=== PATIENT | male | born 1945 | race Caucasian/White ===

== ENCOUNTER 2019-06-14 01:59 | Inpatient (IN) | payer MEDICARE ==
[~2019-06-14] VITALS: Ht 180.3 cm; Wt 79.3 kg
[~2019-06-14 01:59] MED LIST: ACET325 PO; ALBIPROI; ASPI81CH PO; ATEN25; ATEN25 PO; CEPH500 PO; CITA20 PO; CLOP75 PO; DOCU100 PO; HYDACE5 PO; METO50ER PO; MODA200; Mirtazapine7.5 MG PO; OXYACE5T PO; RXHYDACE PO; SULTRIDS PO; TIOT18; TRAM50 PO; VENL150ER; Ventolin Soln3 ML INH
[2019-06-14 03:28] LABS: BASOPHILS ABSOLUTE AUTO 0.03 K/mm3 (0.00-0.23); BASOPHILS PERCENT AUTO 0 % (0-2); EOSINOPHILS ABSOLUTE AUTO 0.01 K/mm3 (0.00-0.68); EOSINOPHILS PERCENT AUTO 0 % (0-6); IMMATURE GRAN ABSOLUTE AUTO 0.08 K/mm3 (0.00-0.10); IMMATURE GRAN PERCENT AUTO 1 % (0-1); LYMPHOCYTES ABSOLUTE AUTO 0.92 K/mm3 (0.84-5.20); LYMPHOCYTES PERCENT AUTO 6 % (21-46); MONOCYTES ABSOLUTE AUTO 1.05 K/mm3 (0.16-1.47); MONOCYTES PERCENT AUTO 6 % (4-13); Mean Corpuscular HGB 30.7 pg (26.0-34.0); Mean Corpuscular HGB Conc 31.7 g/dL (31.5-36.5); Mean Corpuscular Volume 97 fL (80-100); Mean Platelet Volume 10.7 fL (9.1-12.4); NEUTROPHILS PERCENT AUTO 87 % (41-73); Platelet Count 203 K/mm3 (150-400); RDW Coefficient Variation 13.6 % (11.7-14.2); RDW Standard Deviation 48.4 fL (35.1-46.3); Red Blood Cell Count 4.24 M/mm3 (4.30-5.90); White Blood Cell Count 16.79 K/mm3 (4.00-11.30)
[2019-06-14 03:47] LABS: Alanine Aminotransfer (ALT/SGP 19 U/L (12-78); Albumin, Blood 3.5 g/dL (3.4-5.0); Alk Phos 61 U/L (50-136); Anion Gap 7 mmol/L (6-16); Aspartate Aminotrans (AST/SGOT 28 U/L (12-37); Bilirubin, Total 0.8 mg/dL (0.1-1.0); Blood Urea Nitrogen 16 mg/dL (8-24); Bun/Creatinine Ratio 18.1 (12.0-20.0); CO2, Blood 26 mmol/L (21-32); Calcium, Blood 9.5 mg/dL (8.5-10.1); Chloride, Blood 108 mmol/L (98-108); Creatinine, Blood 0.88 mg/dL (0.60-1.20); Globulin, Blood 3.6 g/dL (2.2-4.0); Glomerular Filtration Rate >60 (60-); Glucose, Blood 107 mg/dL (70-99); Potassium, Blood 4.5 mmol/L (3.5-5.5); Sodium, Blood 141 mmol/L (136-145); Total Protein, Blood 7.1 g/dL (6.4-8.2)
[2019-06-14 06:05] LABS: International Normalized Ratio 1.03; Prothrombin Time Results 10.9 Sec (9.7-11.5)
--- NOTE | 2019-06-14 14:25 | NUR ---
INTO SDS VIA BED. PT ORIENTED TO SELF ONLY. DENIES PAIN AT THIS TIME. CONSENT FOR BLOOD AND PROCEDURE OBTAINED VIA PHONE CONSENT. HISTORY AND ALLERGIES REVIEWED. NPO STATUS CONFIRMED. LUNGS TIGHT, COARSE, AND WZ THROUGH OUT. FIO2 TITRATED UP TO 4 LITERS TO KEEP SATS>90% WEAK, MOIST COUGH NOTED. DUO NEB GIVEN.
--- NOTE | 2019-06-14 14:39 | NUR ---
PT TO SURGERY
--- NOTE | 2019-06-14 15:37 | NUR ---
06/14/19 1537 [place] THAKKAR CATH PLACED PER SHIRLEY FISH. 14 FR COUDE CATH USED WITH 5 ML BALLOON
--- NOTE | 2019-06-14 17:53 | NUR ---
PT TO GO TO ICU 4 RETURNED TELE. TOOK POSSESSIONS TO ICU 4 AND REPORTED TO SOLANGE HERNÁNDEZ.
--- NOTE | 2019-06-14 18:15 | NUR ---
ARRIVAL TO ICU PT ARRIVES FROM RECOVERY TO ICU AT 1750. HE IS DROWSY AND WANTING TO SLEEP. ORIENTED TO SELF AND PLACE. STATES PAIN IS CONTROLLED AT THIS TIME. THAKKAR CATH SECURED. LACERATION ON L WRIST REDRESSED; BLEEDING CONTROLLED AT THIS TIME. AQUACEL DRESSINGS ON L HIP SECURED, CLEAN AND DRY. SPO2 94% ON 5L OXYMIZER. NSR, HR 70S. TV ON AND CALL LIGHT WITHIN REACH. CALLED AND UPDATED. WILL CONTINUE TO MONITOR AND THEN GIVE BEDSIDE, HANDOFF REPORT TO NOC RN.
--- NOTE | 2019-06-14 20:53 | NUR ---
START OF SHIFT: REPORT FROM BETTY NARVAEZ. AT BEDSIDE, PT DROWSY AND SLEEPING AWAKENING TO NAME. PT MUMBLES ANSWERS BUT FOLLOWING COMMANDS. LS CLEAR BUT DIMINISHED ON 02 AT 2L VIA N/C. VSS. ALEYDA 3mm BILATERALLY. RADAIL PULSES + STRONG X2. PPP FAINT ONLY BY DOPPLER. PT WITH DIMITRIS QUITAE AND SCD'S IN PLACE. BETTY NARVAEZ POINTED OUT THAT PT HAD HAD A LEFT FA LACERATION FROM FALLING YESTERDAY AND HAD DRESSING CHANGE AFTER ARRIVAL TO ICU. NOTED WAS PT NOT HAVING TRANSFER ORDERS TO ICU NOR POST SURGICAL ORDERS. BETTY NARVAEZ STATED THAT THERE WAS ONLY MENTION FROM OR THAT PT REQUIRED AN INCREASED AMOUNT OF OXYGEN WHILE IN SURGERY. WITH PT STABLE AND NO POST SURGERY ORDERS, ADRIANA JI RN AND THUAN FELT COVERER NOTIFIED. HOSPITALIST CALLED AND INFORMED AND WILL SEE THE PT PRIOR TO READMIT TO SURGICAL FLOOR.
--- NOTE | 2019-06-14 21:18 | NUR ---
PT AWAKENS TO NAME WHEN RN AT BEDSIDE. VSS. PT DENIED PAIN AND NODDED HEAD TO UPDATE OF WHERE PT IS AND WHY. PT INFORMED WILL BE TRANSFERRED BACK TO SURGICAL FLOOR. PT REPOSITIONED SLIGHTLY. PT DID NOT ANSWER QUESTION TO WHETHER PT WAS THIRSTY. PT FELL BACK TO SLEEP. VSS.
--- NOTE | 2019-06-14 22:05 | NUR ---
PT AWAKENS ON HIS OWN, REMAINING AWAKE AND WATCHING TV. PT NODDED HEAD FOR DRINK OF WATER. PT GIVEN NECTAR THICK LEMON FLAVORED WATER AND IS SIPPING USING CUP (NO STRAW). TOLERATING WELL.
--- NOTE | 2019-06-14 22:42 | NUR ---
PT FULLY AWAKE TALKING SENTENCES, MOSTLY COMMENTS ABOUT THE SHOW ON TV. PT CURRENTLY CONSUMING AN ENSURE DRINK AFTER DRINKING TWO CUPS OF THICKENED LEMON WATER. PT TOLERATING WELL.
--- NOTE | 2019-06-14 22:47 | NUR ---
HOSPITALIST AT BEDSIDE
--- NOTE | 2019-06-14 22:56 | NUR ---
HOSPITALIST ALEXANDRA VEGA CONFIRMED PT OKAY TO REMAIN SURGICAL STATUS. PT TO TRANSFER BACK TO SURGICAL FLOOR.
--- NOTE | 2019-06-14 23:15 | NUR ---
REPORT GIVEN TO KIA NARVAEZ. ALL QUESTIONS ANSWERED. PT TO TRANSFER TO SURGICAL ROOM 215.
--- NOTE | 2019-06-14 23:30 | NUR ---
RECEIVED HAND OFF FROM Cuong MONTOYA RN USING SBAR. TRANSPORTED TO ROOM 215 VIA ICU BED. TRANSFERED WITH FULL STAFF ASSISTANCE, TOLERATED WELL. AAO TO SELF AND, SITUATION ONLY. ORIENTED TO ROOM, CALL SYSTEM, AND POC. VOICES UNDERSTANDING, WILL CONTINUE TO REITERATE PRN. REPOSITIONED TO COMFORT, INSTRUCTED ON USE OF TRAPEZE, VOICES UNDERSATNDING AND DEMONSTRATES USE. RESPIRATIONS EVEN AND UNLABORED ON O2 AT 2L/NC. LUNG SOUNDS COARSE AND DIMINSHED. ABDOMEN SOFT AND NONDISTENDED. BOWEL SOUNDS PRESENT IN ALL QUADS. RIGHT FA SL 20G PIV, RIGHT AC SL 20G PIV, AND LEFT FA SL 18G PIV ARE PATENT, EACH FLUSING WITH EASE. LEFT HIP GAMMA NAILING SURGICAL SITE COVERED WITH AQUACEL X2 THAT ARE C/D/I. THAKKAR CATH DRAINING CLEAR ALBER URINE TO GRAVITY. SCD'S TO BLE. DENEIS PAIN AT THIS TIME. SAFETY MEASURES IN PLACE. WILL CONTINUE TO MONITOR.
[2019-06-15 04:40] LABS: BASOPHILS ABSOLUTE AUTO 0.02 K/mm3 (0.00-0.23); BASOPHILS PERCENT AUTO 0 % (0-2); EOSINOPHILS PERCENT AUTO 0 % (0-6); Hematocrit 32.4 % (37.0-53.0); Hemoglobin 10.3 g/dL (13.5-17.5); IMMATURE GRAN ABSOLUTE AUTO 0.08 K/mm3 (0.00-0.10); IMMATURE GRAN PERCENT AUTO 1 % (0-1); LYMPHOCYTES ABSOLUTE AUTO 0.66 K/mm3 (0.84-5.20); LYMPHOCYTES PERCENT AUTO 4 % (21-46); MONOCYTES ABSOLUTE AUTO 0.45 K/mm3 (0.16-1.47); MONOCYTES PERCENT AUTO 3 % (4-13); Mean Corpuscular HGB 30.9 pg (26.0-34.0); Mean Corpuscular HGB Conc 31.8 g/dL (31.5-36.5); Mean Corpuscular Volume 97 fL (80-100); Mean Platelet Volume 11.2 fL (9.1-12.4); NEUTROPHILS ABSOLUTE AUTO 13.84 K/mm3 (1.96-9.15); NEUTROPHILS PERCENT AUTO 92 % (41-73); Platelet Count 165 K/mm3 (150-400); RDW Coefficient Variation 13.9 % (11.7-14.2); RDW Standard Deviation 49.4 fL (35.1-46.3); Red Blood Cell Count 3.33 M/mm3 (4.30-5.90); White Blood Cell Count 15.05 K/mm3 (4.00-11.30)
[2019-06-15 05:03] LABS: Alanine Aminotransfer (ALT/SGP 18 U/L (12-78); Albumin, Blood 2.8 g/dL (3.4-5.0); Albumin/Globulin Ratio 0.9 (0.8-1.8); Alk Phos 45 U/L (50-136); Anion Gap 5 mmol/L (6-16); Aspartate Aminotrans (AST/SGOT 25 U/L (12-37); Bilirubin, Total 0.7 mg/dL (0.1-1.0); Blood Urea Nitrogen 17 mg/dL (8-24); Bun/Creatinine Ratio 21.6 (12.0-20.0); CO2, Blood 27 mmol/L (21-32); Calcium, Blood 8.6 mg/dL (8.5-10.1); Chloride, Blood 108 mmol/L (98-108); Creatinine, Blood 0.79 mg/dL (0.60-1.20); Globulin, Blood 3.1 g/dL (2.2-4.0); Glomerular Filtration Rate >60 (60-); Glucose, Blood 137 mg/dL (70-99); Potassium, Blood 4.2 mmol/L (3.5-5.5); Sodium, Blood 140 mmol/L (136-145); Total Protein, Blood 5.9 g/dL (6.4-8.2)
--- NOTE | 2019-06-15 06:08 | NUR ---
SHIFT SUMMARY AFTER CONSUMING 2 WHOLE SANDWICHES AND 4 SERVINGS OF PUDDING WELL 24 OZ OF NECTAR THICK H2O THIS SHIFT, PT BECAME IRRITATED ABOUT HAVING LLE SCD ON, STATING THAT IT WAS MAKING HIS LEG NUMB. NEURO CIRCULATION INTACT, PT ABLE TO FEEL TOUCH, WIGGLE TOES, FEET ARE WARM, AND DENIES PAIN. CONTINUES TO REFUSE TO WEAR LLE SCD. SCD REMOVED, PT THANKS NURSING. MEDICATED FOR PAIN X1 WITH PRN MEDS PER MD ORDERS. NO FURTHER CHANGES SINCE ARRIVAL FROM ICU. SAFETY MEASURES IN PLACE. WILL GIVE HAND OFF TO ONCOMING SHIFT USING SBAR.
--- NOTE | 2019-06-15 15:40 | NUR ---
SUMMARY: PT IS POD1 L HIP PINNING. PT IS ALERT, ORIENTED, FORGETFUL AT TIMES BUT EASILY RE-ORIENTED. VSS, TELE WNL. PT HAS WET, UNPRODUCTIVE COUGH. I.S. AND SUCTION SET UP AT PT BEDSIDE, ENCOUARGING USE AND COUGH/DEEP BREATHE. PT ABLE TO SUCTION THICK WHITE SPUTUM. SP02 STABLE ON 3L NC. SURGICAL SITE WNL, CSM INTACT. PT UP TO CHAIR WITH PHYSICAL THERAPY AND OCCUPATIONAL THERAPY, ABLE TO FOLLOW COMMANDS. PAIN SEEMS TO BE MANAGED, PT HAS DENIED PAIN THE MAJORITY OF THE DAY. PT TOLERATING REG DIET, THICKENED FLUIDS. NO ACUTE SAFETY CONCERNS AT THIS TIME.
--- NOTE | 2019-06-16 05:43 | NUR ---
SHIFT SUMMARY IMPULSIVE AND CONFUSED, ATTEPMTED TO GET OOB SEVERAL TIMES AFTER BEING INCONTINENT IN ATTENDS. CLEANED AND DRIED, LINENS AND GOWN CHANGED, BATHED. NOTED THAT WHEN HE HAS INCONTINENT EPISODES IS USUALLY WHEN HE REMOVES HIS TELE AND FIDGETS WITH OTHER ITEMS WITHIN REACH. PULLED DRESSING TO LEFT HIP OFF. AREA CLEANED WITH CHG SCRUB AND AQUACEL DERESSING REPLACED, TOLERATED WELL. CURRENTLY RESTING WITH EYES CLOSED DENIES PAIN, DISCOMFORT, OR FURTHER NEEDS AT THIS TIME. SAFETY MEASURES IN PLACE. WILL GIVE HAND OFF TO ONCOMING SHIFT USING SBAR.
[2019-06-16 06:35] LABS: BASOPHILS ABSOLUTE AUTO 0.05 K/mm3 (0.00-0.23); BASOPHILS PERCENT AUTO 0 % (0-2); EOSINOPHILS ABSOLUTE AUTO 0.25 K/mm3 (0.00-0.68); EOSINOPHILS PERCENT AUTO 2 % (0-6); Hematocrit 32.1 % (37.0-53.0); IMMATURE GRAN ABSOLUTE AUTO 0.09 K/mm3 (0.00-0.10); IMMATURE GRAN PERCENT AUTO 1 % (0-1); LYMPHOCYTES ABSOLUTE AUTO 1.57 K/mm3 (0.84-5.20); LYMPHOCYTES PERCENT AUTO 13 % (21-46); MONOCYTES ABSOLUTE AUTO 0.97 K/mm3 (0.16-1.47); MONOCYTES PERCENT AUTO 8 % (4-13); Mean Corpuscular HGB 29.9 pg (26.0-34.0); Mean Corpuscular HGB Conc 31.2 g/dL (31.5-36.5); Mean Corpuscular Volume 96 fL (80-100); Mean Platelet Volume 10.8 fL (9.1-12.4); NEUTROPHILS ABSOLUTE AUTO 8.99 K/mm3 (1.96-9.15); NEUTROPHILS PERCENT AUTO 75 % (41-73); Platelet Count 155 K/mm3 (150-400); RDW Coefficient Variation 13.6 % (11.7-14.2); RDW Standard Deviation 48.6 fL (35.1-46.3); Red Blood Cell Count 3.34 M/mm3 (4.30-5.90); White Blood Cell Count 11.92 K/mm3 (4.00-11.30)
[2019-06-16 06:56] LABS: Albumin, Blood 2.8 g/dL (3.4-5.0); Anion Gap -1 mmol/L (6-16); Blood Urea Nitrogen 16 mg/dL (8-24); Bun/Creatinine Ratio 19.9 (12.0-20.0); CO2, Blood 31 mmol/L (21-32); Calcium, Blood 8.3 mg/dL (8.5-10.1); Chloride, Blood 109 mmol/L (98-108); Glomerular Filtration Rate >60 (60-); Glucose, Blood 98 mg/dL (70-99); Magnesium, Blood 1.9 mg/dL (1.6-2.4); Phosphorus, Blood 2.3 mg/dL (2.5-4.9); Potassium, Blood 4.1 mmol/L (3.5-5.5); Sodium, Blood 139 mmol/L (136-145)
--- NOTE | 2019-06-16 18:45 | NUR ---
SUMMARY: NO ACUTE CHANGE TODAY, VSS. PT CONTINUES TO BE CONFUSED, NO ATTEMPT OOB. FOLLOWS COMMANDS AND ABLE TO WORK WITH THERAPY. SURGICAL SITE INTACT. MORE BRUISING NOTED AT L GROIN THAN LAST SHIFT. SWELLING AT SCROTUM IS DECREASED. PT RECIEVING ALBUTEROL PRN, PT ABLE TO CLEAR COUGHS AND ENCOURAGED TO DEEP BREATHE. BOWEL CARE GIVEN TONIGHT. PLAN IS TO DISCHARGE TO SNF TOMORROW AT 11:15, PACKET FOR DISCHARGE IS IN CHART. WILL PASS REPORT TO NOC SOLANGE
--- NOTE | 2019-06-17 06:43 | NUR ---
SHIFT SUMMARY: PT POD #2 FOR LEFT HIP NAILING. AQUACEL DRESSING CDI. PT SLEEPING MOST OF SHIFT. APPEARS TO BE COMFORTABLE. SLOW TO RESPOND. ALERT TO SELF. INCONTINENT WITH ATTENDS IN PLACE. PT WITHOUT BM FOR 4 DAYS. GIVEN SUPPOSITORY THIS MORNING. PT 2 ASSIST W/FWW AND GB TO CHAIR. TAKING PILLS WHOLE IN THICKENED WATER. HOPING FOR BM TODAY IN HOPES TO D/C TO SNF.
--- NOTE | 2019-06-17 10:30 | NUR ---
DR CISSE SAW PT THIS MORNING AND DECIDED NOT TO DISCHARGE TODAY DT LUNG SOUNDS.
[2019-06-17 10:31] LABS: BASOPHILS ABSOLUTE AUTO 0.05 K/mm3 (0.00-0.23); BASOPHILS PERCENT AUTO 0 % (0-2); EOSINOPHILS PERCENT AUTO 3 % (0-6); Hematocrit 36.8 % (37.0-53.0); Hemoglobin 11.6 g/dL (13.5-17.5); IMMATURE GRAN ABSOLUTE AUTO 0.09 K/mm3 (0.00-0.10); IMMATURE GRAN PERCENT AUTO 1 % (0-1); LYMPHOCYTES ABSOLUTE AUTO 0.93 K/mm3 (0.84-5.20); LYMPHOCYTES PERCENT AUTO 8 % (21-46); MONOCYTES ABSOLUTE AUTO 0.97 K/mm3 (0.16-1.47); MONOCYTES PERCENT AUTO 8 % (4-13); Mean Corpuscular HGB 30.1 pg (26.0-34.0); Mean Corpuscular HGB Conc 31.5 g/dL (31.5-36.5); Mean Corpuscular Volume 95 fL (80-100); Mean Platelet Volume 10.8 fL (9.1-12.4); NEUTROPHILS ABSOLUTE AUTO 9.29 K/mm3 (1.96-9.15); NEUTROPHILS PERCENT AUTO 80 % (41-73); Platelet Count 195 K/mm3 (150-400); RDW Coefficient Variation 13.7 % (11.7-14.2); RDW Standard Deviation 48.4 fL (35.1-46.3); Red Blood Cell Count 3.86 M/mm3 (4.30-5.90); White Blood Cell Count 11.63 K/mm3 (4.00-11.30)
[2019-06-17 10:49] LABS: Albumin, Blood 2.9 g/dL (3.4-5.0); Anion Gap 6 mmol/L (6-16); Blood Urea Nitrogen 19 mg/dL (8-24); Bun/Creatinine Ratio 24.8 (12.0-20.0); CO2, Blood 25 mmol/L (21-32); Calcium, Blood 8.8 mg/dL (8.5-10.1); Chloride, Blood 106 mmol/L (98-108); Creatinine, Blood 0.77 mg/dL (0.60-1.20); Glomerular Filtration Rate >60 (60-); Glucose, Blood 109 mg/dL (70-99); Phosphorus, Blood 2.9 mg/dL (2.5-4.9); Potassium, Blood 4.4 mmol/L (3.5-5.5); Sodium, Blood 137 mmol/L (136-145)
--- NOTE | 2019-06-17 18:58 | NUR ---
SHIFT SUMMARY PT WAS UP TO CHAIR TODAY AND TOLERATED FOOD. REPORTED NO PAIN TODAY. PT INCONTINENT AND WAS CHANGED SEVERAL TIMES TODAY. PT NEEDS 2X ASSIST TO TRANSFER. WAS IN TO SEE PT TODAY AND DECIDED NOT TO DC D/T LUNG SOUNDS. PT HAS BEEN ON 3L O2 TODAY. WORKED WITH PHYSICAL THERAPY. PT HAS NO IV ACCESS PER ORDER AND NO SORES TO HEELS OR BOTTOM. PT HAS BEEN REPOSITIONED MULTIPLE TIMES TODAY. BED ALARM IN PLACE. BEEN ASSISTED WITH ADL'S PRN.
--- NOTE | 2019-06-18 05:38 | NUR ---
SHIFT SUMMARY: NO SIGNIFICANT CHANGES THROUGHOUT SHIFT. PT S/P LEFT HIP REPAIR. AQUACEL CDI. PT SLEEPING MOST OF SHIFT. APPEARS COMFORTABLE. INCONTINENT OF URINE AND STOOL SMEARS. PT REPOSITIONED T/O NIGHT. LUNGS WITH EXPIRATORY COURSE IN ALL TALAMANTES. RECEIVING NEB TREATMENTS Q4. JOSE NECTAR THICK H20.
[2019-06-18 07:04] LABS: BASOPHILS ABSOLUTE AUTO 0.03 K/mm3 (0.00-0.23); BASOPHILS PERCENT AUTO 0 % (0-2); EOSINOPHILS ABSOLUTE AUTO 0.23 K/mm3 (0.00-0.68); EOSINOPHILS PERCENT AUTO 2 % (0-6); Hematocrit 34.7 % (37.0-53.0); Hemoglobin 11.2 g/dL (13.5-17.5); IMMATURE GRAN ABSOLUTE AUTO 0.09 K/mm3 (0.00-0.10); IMMATURE GRAN PERCENT AUTO 1 % (0-1); LYMPHOCYTES ABSOLUTE AUTO 0.93 K/mm3 (0.84-5.20); LYMPHOCYTES PERCENT AUTO 10 % (21-46); MONOCYTES ABSOLUTE AUTO 0.99 K/mm3 (0.16-1.47); MONOCYTES PERCENT AUTO 10 % (4-13); Mean Corpuscular HGB 30.4 pg (26.0-34.0); Mean Corpuscular HGB Conc 32.3 g/dL (31.5-36.5); Mean Corpuscular Volume 94 fL (80-100); Mean Platelet Volume 11.1 fL (9.1-12.4); NEUTROPHILS ABSOLUTE AUTO 7.54 K/mm3 (1.96-9.15); NEUTROPHILS PERCENT AUTO 77 % (41-73); Platelet Count 198 K/mm3 (150-400); RDW Coefficient Variation 13.7 % (11.7-14.2); Red Blood Cell Count 3.68 M/mm3 (4.30-5.90); White Blood Cell Count 9.81 K/mm3 (4.00-11.30)
[2019-06-18 07:48] LABS: Albumin, Blood 2.8 g/dL (3.4-5.0); Anion Gap 5 mmol/L (6-16); Blood Urea Nitrogen 22 mg/dL (8-24); Bun/Creatinine Ratio 27.7 (12.0-20.0); CO2, Blood 25 mmol/L (21-32); Calcium, Blood 8.8 mg/dL (8.5-10.1); Chloride, Blood 105 mmol/L (98-108); Creatinine, Blood 0.79 mg/dL (0.60-1.20); Glomerular Filtration Rate >60 (60-); Glucose, Blood 102 mg/dL (70-99); Phosphorus, Blood 4.1 mg/dL (2.5-4.9); Potassium, Blood 4.4 mmol/L (3.5-5.5); Sodium, Blood 135 mmol/L (136-145)
--- NOTE | 2019-06-18 16:35 | NUR ---
SHIFT SUMMARY PT HAS BEEN UP TO CHAIR TODAY. PT INCONTINENT, BRIEFS IN PLACE, CHANGED MULT TIMES TODAY. PT IS TOLERATING FOOD AND THICKENED LIQUIDS. RN GAVE MEDICATIONS WITH APPLESAUSE THIS MORNING WHICH WORKED WELL. PT HAS REPORTED NO PAIN TODAY. BED/TAB ALARM HAVE BEEN IN PLACE TODAY. PT HAS REQUIRED MAX ASSIST FOR TRANSFER AND ASSISTANCE WITH REPOSITIONING. REPOSITIONED MULTIPLE TIMES TODAY. ASSISTED WITH ADL'S PRN. CALL LIGHT IN PLACE.
--- NOTE | 2019-06-19 06:10 | NUR ---
SHIFT SUMMARY: PT MORE TALKATIVE WITH STAFF THIS SHIFT. RESPONDING APPROPRIATLY. DIFFICULT TO UNDERSTAND AT TIMES. PT VOIDING IN ATTENDS. RECIEIVING BREATHING TX PER RT. LUNGS CLEAR AND DIMINISHED. O2 SATS STABLE ON 3LO2. CALM AND COOPERATIVE WITH CARE.
[2019-06-19] MEDS ORDERED: ACET325 PO (11:05)
[2019-06-19] MEDS ORDERED: ALBU2.5V5 NEB (11:06)
[2019-06-19] MEDS ORDERED: AZIT500 PO (11:08)
[2019-06-19] MEDS ORDERED: BISA10S PR (11:09)
[2019-06-19] MEDS ORDERED: DOCU100 PO (11:10)
[2019-06-19] MEDS ORDERED: ENOX40I SC (11:10)
[2019-06-19] MEDS ORDERED: TRAM50 PO (11:13)
[2019-06-19] MEDS ORDERED: MIRALAX17 GM PO (11:13)
[2019-06-19] MEDS ORDERED: ALBU3IS NEB (11:28)
--- NOTE | 2019-06-19 12:47 | NUR ---
GAVE REPORT TO RN AT [facility]. WILL MONITOR PT UNTIL TRANSPORT ARRIVES FOR DISCHARGE.
--- NOTE | 2019-06-19 13:27 | NUR ---
PT DISCHARGED WITH TRANSPORT TO [facility]IA [facility]. O2 IN PLACE ON PATIENT. POSSESSIONS SENT WITH ENTRY LEVEL FINANCIAL ANALYST AND PACKET GIVEN TO ENTRY LEVEL FINANCIAL ANALYST. PATIENT HAS HAD 3 BMS TODAY. NO COMPLAINTS OF PAIN. INCONTINENT OF BLADDER, CONTINENT OF STOOL.
--- NOTE | 2019-06-19 14:12 | NUR ---
ATTEMPTED TO CALL [facility] AT APPROX 1:30 TO UPDATE THEM ON DIET ORDERS FOR PT. LEFT NUMBER AND MESSAGE TO CALL BACK WITH PATIENT ADMITTING CLERK. WILL AWAIT CALLBACK.
== END 2019-06-19 13:27 | DRG 480 ==
LOC: ER 01:59 → SURS 04:40 → ICUE 17:59 → SURS 23:20
PROVIDERS: Emergency Medicine; Internal Medicine; Orthopaedic Surgery; ADMIT Internal Medicine
PROC: 0QS736Z Reposition Left Upper Femur with Intramedullary Internal Fixation Device, Percutaneous Approach (ICD-10-PCS; principal; 2019-06-14 12:30)
DX: S72.142A Displaced intertrochanteric fracture of left femur, initial encounter for closed fracture (principal); J96.01 Acute respiratory failure with hypoxia; W19.XXXA Unspecified fall, initial encounter; I25.10 Atherosclerotic heart disease of native coronary artery without angina pectoris; F03.90 Unspecified dementia, unspecified severity, without behavioral disturbance, psychotic disturbance, mood disturbance, and anxiety; I10 Essential (primary) hypertension; J44.9 Chronic obstructive pulmonary disease, unspecified; M19.90 Unspecified osteoarthritis, unspecified site; Z86.73 Personal history of transient ischemic attack (TIA), and cerebral infarction without residual deficits; Z87.891 Personal history of nicotine dependence; Z99.3 Dependence on wheelchair; I45.81 Long QT syndrome; Z66 Do not resuscitate
CPT/HCPCS: 36415; 71045; 71046; 73030; 73110; 73502; 80053; 80069; 83735; 83880; 84145; 85025; 85610; 93005; 93010; 93306; 94640; 94760; 97110; 97116; 97162; 97166; 97530; 97535; 99285-25; A9270; C1713; J0330; J1100; J1650; J2370; J2405; J2704; J3010; J7030; J7120

== ENCOUNTER 2019-08-03 15:54 | Emergency (ER) | payer MEDICARE ==
[~2019-08-03] VITALS: Ht 175.3 cm; Wt 72.6 kg
[~2019-08-03 15:54] MED LIST changes: +ALBU2.5V5 NEB; +ALBU3IS NEB; +AZIT500 PO; +BISA10S PR; +ENOX40I SC; +MIRALAX17 GM PO
== END 2019-08-03 20:06 | disposition home or self-care (01) ==
LOC: ER 15:54
DX: K40.90 Unilateral inguinal hernia, without obstruction or gangrene, not specified as recurrent (principal); I10 Essential (primary) hypertension; J44.9 Chronic obstructive pulmonary disease, unspecified; F03.90 Unspecified dementia, unspecified severity, without behavioral disturbance, psychotic disturbance, mood disturbance, and anxiety; Z87.891 Personal history of nicotine dependence; Z79.899 Other long term (current) drug therapy; Z79.01 Long term (current) use of anticoagulants
CPT/HCPCS: 76870; 99284-25

== ENCOUNTER 2019-08-29 13:58 | Emergency (ER) | payer MEDICARE ==
[~2019-08-29] VITALS: Ht 180.3 cm; Wt 81.7 kg
[2019-08-29 14:47] LABS: BASOPHILS ABSOLUTE AUTO 0.05 K/mm3 (0.00-0.23); BASOPHILS PERCENT AUTO 1 % (0-2); EOSINOPHILS ABSOLUTE AUTO 0.07 K/mm3 (0.00-0.68); EOSINOPHILS PERCENT AUTO 1 % (0-6); Hematocrit 45.4 % (37.0-53.0); Hemoglobin 14.5 g/dL (13.5-17.5); IMMATURE GRAN ABSOLUTE AUTO 0.02 K/mm3 (0.00-0.10); IMMATURE GRAN PERCENT AUTO 0 % (0-1); LYMPHOCYTES ABSOLUTE AUTO 1.13 K/mm3 (0.84-5.20); LYMPHOCYTES PERCENT AUTO 16 % (21-46); MONOCYTES ABSOLUTE AUTO 0.54 K/mm3 (0.16-1.47); MONOCYTES PERCENT AUTO 8 % (4-13); Mean Corpuscular HGB 30.8 pg (26.0-34.0); Mean Corpuscular HGB Conc 31.9 g/dL (31.5-36.5); Mean Corpuscular Volume 96 fL (80-100); Mean Platelet Volume 10.7 fL (9.1-12.4); NEUTROPHILS ABSOLUTE AUTO 5.32 K/mm3 (1.96-9.15); NEUTROPHILS PERCENT AUTO 75 % (41-73); Platelet Count 201 K/mm3 (150-400); RDW Coefficient Variation 13.6 % (11.7-14.2); RDW Standard Deviation 49.1 fL (35.1-46.3); Red Blood Cell Count 4.71 M/mm3 (4.30-5.90); White Blood Cell Count 7.13 K/mm3 (4.00-11.30)
[2019-08-29 15:10] LABS: Alanine Aminotransfer (ALT/SGP 22 U/L (12-78); Albumin, Blood 3.6 g/dL (3.4-5.0); Alk Phos 88 U/L (50-136); Anion Gap 4 mmol/L (6-16); Aspartate Aminotrans (AST/SGOT 22 U/L (12-37); Bilirubin, Total 0.7 mg/dL (0.1-1.0); Blood Urea Nitrogen 11 mg/dL (8-24); Bun/Creatinine Ratio 16.7 (12.0-20.0); CO2, Blood 29 mmol/L (21-32); Calcium, Blood 9.2 mg/dL (8.5-10.1); Chloride, Blood 109 mmol/L (98-108); Creatinine, Blood 0.66 mg/dL (0.60-1.20); Globulin, Blood 3.6 g/dL (2.2-4.0); Glomerular Filtration Rate >60 (60-); Glucose, Blood 94 mg/dL (70-99); Potassium, Blood 3.6 mmol/L (3.5-5.5); Sodium, Blood 142 mmol/L (136-145); Total Protein, Blood 7.2 g/dL (6.4-8.2); Troponin I <0.015 ng/mL (0.000-0.040)
[2019-08-29] MEDS ORDERED: Prednisone20 MG PO (17:46)
== END 2019-08-29 19:01 | disposition home or self-care (01) ==
LOC: ER 13:58
PROVIDERS: Physician Assistant
DX: J96.01 Acute respiratory failure with hypoxia (principal); J44.1 Chronic obstructive pulmonary disease with (acute) exacerbation; R29.6 Repeated falls; I10 Essential (primary) hypertension; Z87.891 Personal history of nicotine dependence; Z88.0 Allergy status to penicillin; Z79.899 Other long term (current) drug therapy
CPT/HCPCS: 36415; 71046; 80053; 84484; 85025; 93005; 93010; 96374; 99285-25; J2930

== ENCOUNTER 2019-09-05 13:42 | Observation (INO) | payer MEDICARE ==
[~2019-09-05] VITALS: Ht 165.1 cm; Wt 71.0 kg
[~2019-09-05 13:42] MED LIST changes: +Prednisone20 MG PO
[2019-09-05] MEDS ORDERED: HALO.5 PO (14:00)
[2019-09-05] MEDS ORDERED: CLOP75 PO (14:01)
[2019-09-05] MEDS ORDERED: METO50ER PO (14:01)
[2019-09-05 14:35] LABS: BASOPHILS ABSOLUTE AUTO 0.05 K/mm3 (0.00-0.23); BASOPHILS PERCENT AUTO 0 % (0-2); EOSINOPHILS ABSOLUTE AUTO 0.04 K/mm3 (0.00-0.68); EOSINOPHILS PERCENT AUTO 0 % (0-6); Hematocrit 50.4 % (37.0-53.0); Hemoglobin 15.8 g/dL (13.5-17.5); IMMATURE GRAN ABSOLUTE AUTO 0.06 K/mm3 (0.00-0.10); IMMATURE GRAN PERCENT AUTO 1 % (0-1); LYMPHOCYTES ABSOLUTE AUTO 1.24 K/mm3 (0.84-5.20); LYMPHOCYTES PERCENT AUTO 9 % (21-46); MONOCYTES ABSOLUTE AUTO 0.91 K/mm3 (0.16-1.47); MONOCYTES PERCENT AUTO 7 % (4-13); Mean Corpuscular HGB 30.5 pg (26.0-34.0); Mean Corpuscular HGB Conc 31.3 g/dL (31.5-36.5); Mean Corpuscular Volume 97 fL (80-100); NEUTROPHILS ABSOLUTE AUTO 10.87 K/mm3 (1.96-9.15); NEUTROPHILS PERCENT AUTO 83 % (41-73); Platelet Count 212 K/mm3 (150-400); RDW Coefficient Variation 13.4 % (11.7-14.2); RDW Standard Deviation 48.1 fL (35.1-46.3); Red Blood Cell Count 5.18 M/mm3 (4.30-5.90); White Blood Cell Count 13.17 K/mm3 (4.00-11.30)
[2019-09-05 14:57] LABS: Alanine Aminotransfer (ALT/SGP 30 U/L (12-78); Albumin, Blood 3.1 g/dL (3.4-5.0); Albumin/Globulin Ratio 0.9 (0.8-1.8); Alk Phos 78 U/L (50-136); Anion Gap 8 mmol/L (6-16); Aspartate Aminotrans (AST/SGOT 45 U/L (12-37); Bilirubin, Total 0.6 mg/dL (0.1-1.0); Blood Urea Nitrogen 18 mg/dL (8-24); Bun/Creatinine Ratio 31.5 (12.0-20.0); CO2, Blood 24 mmol/L (21-32); Calcium, Blood 8.8 mg/dL (8.5-10.1); Chloride, Blood 114 mmol/L (98-108); Creatinine, Blood 0.57 mg/dL (0.60-1.20); Globulin, Blood 3.6 g/dL (2.2-4.0); Glomerular Filtration Rate >60 (60-); Glucose, Blood 85 mg/dL (70-99); Potassium, Blood 3.9 mmol/L (3.5-5.5); Sodium, Blood 146 mmol/L (136-145); Total Protein, Blood 6.7 g/dL (6.4-8.2); Troponin I <0.015 ng/mL (0.000-0.040)
[2019-09-05 15:42] LABS: Creatine Kinase MB 3.8 ng/mL (0.0-3.6); Creatine Kinase MB Index 0.7 (0.0-4.0)
[2019-09-05 17:54] LABS: Source, Urine Clean Catch
[2019-09-05 18:03] LABS: Appearance, Urine Clear (Clear); Bilirubin, Urine Neg (Neg); Blood, Urine 1+ (Neg); Color, Urine Yellow (P-Yellow); Glucose Qualitative, Urine Neg (Neg); Ketones, Urine 4+ (Neg); Leukocyte Esterase, Urine Neg (Neg); Nitrite, Urine Neg (Neg); Protein, Urine 2+ (Neg); Specific Gravity, Urine 1.025 (1.003-1.022); Urobilinogen, Urine NORM (Normal)
[2019-09-05 18:11] LABS: White Blood Cells, Urine 0-2 /hpf (0-5)
[2019-09-05 18:12] LABS: Amorphous Light (0-Heavy); Bacteria Few /hpf; Squamous Epithelial Cells Not Seen /hpf (Few)
[2019-09-05 18:43] LABS: Base Excess Venous -0.1 mmol/L; PCO2 Venous 44.7 mmHg (38-42); PO2 Venous 112 mmHg (38-42); pH Blood Venous 7.36 (7.34-7.37)
[2019-09-05] MEDS ORDERED: ACET325 PO (21:18)
[2019-09-05] MEDS ORDERED: BISA10S PR (21:20)
[2019-09-05] MEDS ORDERED: DOCU100 PO (21:21)
[2019-09-05] MEDS ORDERED: ALBU3IS INH (21:21)
[2019-09-05] MEDS ORDERED: ENOX40I SC (21:21)
[2019-09-05] MEDS ORDERED: TRAM50 PO (21:22)
[2019-09-05] MEDS ORDERED: MIRALAX17 GM PO (21:22)
--- NOTE | 2019-09-05 21:45 | NUR ---
DURING A DISCUSSION W/THE PT RE: HIS HOSPITAL ADMISSION, LEVEL OF SELF CARE AT HOME AND NEEDS UPON D/C, PT BECAME VERY TEARFUL AND EXPRESSED GENUINE CONCERN THAT HIS "WAS TRYING TO KILL HIM". I ASKED WHETHER HE SERIOUSLY BELIEVED THAT BECAUSE PT SAFETY IS OF UTMOST CONCERN FOR OUR STAFF AND HE STATED SHE'S "TOLD ME MUCH MANY OF TIMES". HE EXPRESSED FEAR OF GOING HOME BUT ADMITTED THAT A GOOD FRIEND (WHO'S NAME HE COULDN'T RECALL AT THE TIME) "STOPS BY TO CHECK ON HIM WHICH GIVES SOME PEACE OF MIND". HE STATED THIS FRIEND "HELPS W/ FOOD AND SUCH" BECAUSE HIS " IS HIS CAREGIVER BUT SHE DOESN'T WANT TO HELP CARE FOR HIM". PT APPEARS EMACIATED, DISHEVELED AND HAD CRUSTY GREEN SUBSTANCE IN HIS NIXON AND DRIED BLOOD ON HIS FACE. THIS RN HELPED TO CLEAN PT'S FACE AND GIVE PARTIAL BED BATH TO FRESHEN UP. HE BECAME TEARFUL AGAIN "WITH SUMMER TO FEEL CLEAN". HE ADMITTED TO BEING "STARVING" AND A SNACK WAS PROVIDED. AFTER SETUP, PT WAS ABLE TO FEED SELF. I EXPLAINED THAT SS WOULD BE CONSULTED TO BETTER ADDRESS HIS NEEDS UPON D/C AND DESCRIBED THAT PLACEMENT MAY BE NECESSARY. HE EXPRESSED AGREEMENT AND WAS "HAPPY NOT TO GO HOME" BUT INSTEAD TO SOMEWHERE HE'D "BE LOOKED AFTER AND WOULD BE SAFE". WHILE HE'S A POOR HEALTH HISTORIAN AND HAS A HX OF DEMENTIA, HE SEEMED TO GIVE AN ACCURATE ACCOUNT OF HIS EXPERIENCE. HE IS ABLE TO CLEARLY SPECIFY NEEDS AND CORRECTLY DEMONSTRATED ABILITY TO USE CALL LIGHT. HE ANSWERS MOST Q'S APPROPRIATELY DESPITE BEING FORGETFULL TO TOWN AND DATE SPECIFICS. HE DENIED NEEDING PAIN MEDS, SAID HE'D LIKE A VISIT FROM A SPIRITUAL CARE PROVIDER, ADMITTED TO NOT HAVING DENTURES AND TOLERATES SOFTER FOODS BETTER RESULT. HE WAS AWARE HE'D FALLEN AND SAID IT WAS "SCARY BEING STUCK UNDER THE MATTRESS". WHILE THE DETAILS LEADING TO ADMISSION WERE ONLY ACQUIRED BY THIS RN FROM SHIFT REPORT, HIS ACCOUNT, FEAR AND CONCERN SEEM VERY REAL AND GENUINE TO HIM. CLINICAL PSYCHOLOGIST LICENSED, PENNY WAN, MADE AWARE OF OUR CONVERSATION.
[2019-09-06 02:14] LABS: BASOPHILS ABSOLUTE AUTO 0.06 K/mm3 (0.00-0.23); BASOPHILS PERCENT AUTO 1 % (0-2); EOSINOPHILS ABSOLUTE AUTO 0.12 K/mm3 (0.00-0.68); EOSINOPHILS PERCENT AUTO 1 % (0-6); Hematocrit 42.3 % (37.0-53.0); Hemoglobin 13.6 g/dL (13.5-17.5); IMMATURE GRAN ABSOLUTE AUTO 0.05 K/mm3 (0.00-0.10); IMMATURE GRAN PERCENT AUTO 0 % (0-1); LYMPHOCYTES ABSOLUTE AUTO 1.86 K/mm3 (0.84-5.20); LYMPHOCYTES PERCENT AUTO 16 % (21-46); MONOCYTES ABSOLUTE AUTO 1.06 K/mm3 (0.16-1.47); MONOCYTES PERCENT AUTO 9 % (4-13); Mean Corpuscular HGB 30.6 pg (26.0-34.0); Mean Corpuscular HGB Conc 32.2 g/dL (31.5-36.5); Mean Corpuscular Volume 95 fL (80-100); Mean Platelet Volume 10.8 fL (9.1-12.4); NEUTROPHILS ABSOLUTE AUTO 8.23 K/mm3 (1.96-9.15); NEUTROPHILS PERCENT AUTO 72 % (41-73); Platelet Count 204 K/mm3 (150-400); RDW Coefficient Variation 13.6 % (11.7-14.2); RDW Standard Deviation 48.2 fL (35.1-46.3); Red Blood Cell Count 4.44 M/mm3 (4.30-5.90); White Blood Cell Count 11.38 K/mm3 (4.00-11.30)
[2019-09-06 02:33] LABS: Anion Gap 7 mmol/L (6-16); Blood Urea Nitrogen 15 mg/dL (8-24); Bun/Creatinine Ratio 24.3 (12.0-20.0); CO2, Blood 26 mmol/L (21-32); Calcium, Blood 8.6 mg/dL (8.5-10.1); Chloride, Blood 110 mmol/L (98-108); Creatinine, Blood 0.62 mg/dL (0.60-1.20); Glomerular Filtration Rate >60 (60-); Glucose, Blood 80 mg/dL (70-99); Potassium, Blood 3.6 mmol/L (3.5-5.5); Sodium, Blood 143 mmol/L (136-145); Troponin I <0.015 ng/mL (0.000-0.040)
--- NOTE | 2019-09-06 04:37 | NUR ---
SUMMARY: PT T/F'D JUST PRIOR TO SHIFT CHANGE. HE IS A/O TO SELF, FAMILY AND "HOSPITAL" BUT CONFUSED TO DATE/TOWN. HE WAS AWARE OF FALLING AND SPENDING TIME ON GROUND FOR APPROX 2+DAYS PRIOR TO ADMIT. PT'S EXPRESSES FEAR AND BECAME TEARFUL REGARDING SAFETY AT HOME. HE SEEMS TO BELIEVE HIS INTENDS HARM TO HIM AND "WANTS TO KILL HIM". HE EXPLAINED THAT SHE IS HIS CAREGIVER BUT "DOESN'T CARE FOR HIM OR WANT TO ANY LONGER". HE IS RECEPTIVE TO SS CX AND AGREEABLE TO POSSIBLE NEED FOR PLACEMENT. HE HAS WHISPERED SPEECH BUT HAS BEEN VERY PLEASANT AND COOPERATIVE W/CARE. HE'S BEEN GRATEFUL FOR REPOSITIONING, SNACKS AND FLUIDS OFFERED. HE APPEARS EMACIATED AND GAUNT W/ BRUISES, ABRASIONS AND SCABS SCATTERED TO BODY, LIKELY FROM RECENT FALLS AND PROBABLE ASSOCIATED RHABDO. NS INFUSES PER EMAR FOR RENAL PROTECTION AND DEHYDRATION. HE'S DENIED NEEDING ANY PRN PAIN MEDS DESPITE SIGNIFICANT BRUISE TO L.SHOULDER AND KNEES. BUTTOCKS WAS PINK W/TURN SCHEDULE MAINTAINED FOR SBD PREVENTION. PT HAS DEMENTIA AND WASN'T THE BEST HEALTH HISTORIAN BUT DID SEEM TO BE SENSICAL AND ANSWER Q'S APPROPRIATELY. HIS ACCOUNT OF SITUATION AT HOME WAS QUITE DIFFERENT FROM THAT DISCUSSED IN HIS H&P. SEE PREVIOUS NOTE FOR DETAILS. PT DIDN'T SHOW ANY S/S COMBATIVE BEHAVIOR SINCE ADMIT THOUGH AND HAS BEEN COMPLIANT W/CARE. THAKKAR PLACED IN ER REMAINS PATENT/DRAINING DARK ALBER URINE. PT DENIES ACUTE DISTRESS. VSS/AFEBRILE. PT SLIGHTLY HYPERTENSIVE BUT WILL HAVE SCHEDULED BP MEDS THIS AM. HE IS S.TACH W/BBB AT 90'S-100'S BPM. LS ARE COARSE BUT ENCOURAGED TO DEEP BREATH AND COUGH FOR SOME IMPROVEMENT. WCTM AND REPORT TO DAY RN.
--- NOTE | 2019-09-06 10:21 | NUR ---
THAKKAR CATH D/C'D. PLACED IN ER PER REPORT. ATTENDS PLACED FOR POSSIBLE INCONTINENCE.
--- NOTE | 2019-09-06 17:24 | NUR ---
SHIFT SUMMARY PT RESTING QUIETLY AT START OF SHIFT. WAKES EASILY FOR CARE. ABLE TO TAKE PO MEDS W/O DIFFICULTY THIS AM. PT ALSO ABLE TO FEED HIMSELF ALL OF BREAKFAST. O/T IN TO WORK WITH PT AND REPORTED POSSIBLE ASPIRATION WITH THIN LIQUIDS. PT THEN HAD DIFFICULTY EATING TURKEY AND APPLES AT LUNCH W/O HIS DENTURES. PT CONTINUED TO COUGH PERIODICALLY WHEN DRINKING THIN LIQUIDS AND THIN SOUP. DR LEWIS NOTIFIED FOR SPEECH EVAL; TO BE DONE IN AM. THIN LIQUIDS REMOVED AT THIS TIME UNTIL SWALLOW EVAL IN AM. LUNGS WITH SCATTERED COARSE CRACKLES AND COARSE COUGH. NO C/O PAIN. DAINA AND COLDFUSION IN TO SEE PT TODAY. PT WITH THAKKAR CATH AT START OF SHIFT, PLACED BY ER. VERBAL ORDER TO D/C PER DR LEWIS. INFECTION CONTROL NOTIFIED AFTER D/C'D. P/T IN TO SEE PT WELL; PT VERY WEAK AND FEARFUL OF FALLS. ABLE TO TX FROM BED TO CHAIR AND BACK WITH 2P MAX ASSIST AND GAIT BELT. BED ALARM ON FOR SAFETY. CALL LT IN REACH.
--- NOTE | 2019-09-06 18:07 | NUR ---
Inital spiritual care note: Mr. Chandra was eating lunch when I visited. He could not talk to me as he had a mouthful of food. He chewed on the same mouthful for more than 10 minutes, when I asked him if he had teeth. He said 'no'. Clearly, he needed to be on a soft-food diet and RN informed. Soup brought by LEATHER FINISHER. He was pleasant and said 'please' and 'thank you" as I brought him beverages and cooled soup at his request. Other than that, he saaid very little. He appears quite frail. With each small spoonful of soup, he coughed. Informed RN he may be aspirating thin liquids. Mr. Chandra appeared to enjoy companionship and words of assurance. He is non-religous, but responded well to kindness and attention. I will remain available.
--- NOTE | 2019-09-06 19:13 | NUR ---
NO VOID THIS SHIFT, SINCE THAKKAR CATH REMOVED. BLADDER SCAN DONE SHOWING 222cc. PT DENIED NEEDING TO VOID AT THIS TIME. ATTENDS PLACED FOR POSSIBLE INCONTINENCE. REPORT GIVEN TO ONCOMING SHIFT.
--- NOTE | 2019-09-07 03:33 | NUR ---
ASSEMBLER TYPE BAR AND SEGMENT SUMMARY PT IS PLEASANT AND COOPERATIVE. A/O X1 TO SELF WITH SLOW SPEECH. PT HAD TWO LARGE INCONTINENCE TO BLADDER. O2 IN THE HIGH 80S TO LOW 90S. HX OF CHRONIC HYPOXIA AND COPD. NOT ON O2. CHARGE NURSE NOTIFIED OF THIS. NO SOB OR OTHER BREATHING EXERTION NOTED. VERY WET COUGH OCCASIONALLY. HONEY THICK LEMON WATER GIVEN. PT TOLERATED WELL AND COUGHED ONCE WHILE DRINKING WHILE SITTING UP AT 90 DEGREE ANGLE. NS RUNNING AT 75 ML/HR. WILL CONTINUE TO MONITOR. AWAITING SWALLOW EVAULATION BEFORE BREAKFAST.
--- NOTE | 2019-09-07 18:30 | NUR ---
PT AWAITING PLACEMENT AT THIS TIME, SWALLOW EVAL BY SPEECH THIS MORNING, PUREE DIET, NO MIXED CONSISTANCIES, NO STRAW, SUPERVISED EATING. NO ACUTE CHANGES NOTED THIS SHIFT, WILL CONTINUE TO MONITOR AND REPORT TO ONCOMING RN
--- NOTE | 2019-09-08 04:39 | NUR ---
COPPER PLATE PRINTER SUMMARY PT SLEPT WELL MOST OF NIGHT. ABLE TO EXPRESS NEEDS AT TIMES. PT WAS ABLE TO TELL NURSE THAT HE "NEEDS TO POOP" WHILE NURSE WAS IN THE ROOM. NO COMPLAINS OF PAIN, DIZZINIESS OR NAUSEA. PT WAS VOIDED LARGE AMOUNT SOAKING THROUGH ATTENDS A FEW TIMES DURING THIS SHIFT. NS RUNNING AT 75ML/HR. PT SEEMS MORE ALERT TODAY COMPARED TO YESTERDAY. BED ALARM ON. HAS NOT TRIED TO GET OUT OF BED.
--- NOTE | 2019-09-08 18:38 | NUR ---
PT NEEDS PLACEMENT AT A [facility]ORY CARE FACILITY, HE REMAINS VERY FEARFUL OF FALLING WHEN UP WITH STAFF, USING A TWO PEOPLE, GAIT BELT AND WALKER. NO ACUTE CHANGES NOTED THIS SHIFT, WILL CONTINUE TO MONITOR AND REPORT TO ONCOMING RN
--- NOTE | 2019-09-09 05:28 | NUR ---
SHIFT SUMMARY PT IS A 74 Y/O MALE, ADMITTED FOR FREQUENT FALLS. HE IS A&O X SELF ONLY, AND A 2P MAX ASSIST. PT IS INCONTINENT, AND HIS ATTENDS WERE CHANGED SEVERAL TIMES DURING THE NIGHT. NO COMPLAINTS OF ACUTE PAIN, NAUSEA OR SOB. VITAL SIGNS STABLE. NO ACUTE CHANGES IN PT CONDITION NOTED. WILL CONTINUE TO MONITOR AND TREAT PER EMAR UNTIL HAND OFF TO DAY SHIFT RN.
--- NOTE | 2019-09-09 12:55 | NUR ---
HE HAS BEEN UP IN THE CHAIR SINCE 8 AM FOR BREAKFAST. HE DID NOT WANT TO GO BACK TO BED IN BETWEEN MEALS. WILL ENCOURAGE HIM TO REST IN THE BED THIS AFTERNOON THOUGH. HE NEEDS ASSIST WITH MEALS. HE DOES SOME COUGHING AND HAS A WET SOUNDING THROAT. HE REMAINS ON TELE BUT UNKNOWINGLY TAKES IT APART OFF AND ON. HE TOOK HIS GOWN OFF ONCE TODAY TOO. EVEN THOUGH HIS DEMENTIA IS VERY EVIDENT, HE HAS ANSWERED SOME BASIC QUESTIONS RIGHT. NEW BP MED STARTED THIS AM D/T RECENT HIGH BP'S.
--- NOTE | 2019-09-09 17:17 | NUR ---
HE SLID HIMSELF DOWN ONTO THE FLOOR TODAY BESIDE HIS BED. NO INJURY. AND MD NOTIFIED. TELE UNCHANGED. NO LABS TODAY. OX1 OR 2 AT TIMES. HE TALKED WITH HIS ON THE PHONE ONCE TODAY. HE IS AN ASSIST FEED. HE IS UP IN THE CHAIR FOR MEALS. AFTERNOON BP IMPROVED.
--- NOTE | 2019-09-10 05:52 | NUR ---
SHIFT SUMMARY PT IS A 74 Y/O MALE, ADMITTED FOR MULTIPLE FALLS AT HOME. PT IS A 2P MAX ASSIST BETWEEN THE BED AND CHAIR. HE IN INCONTINENT, TURN Q2H. NO COMPLAINTS OF PAIN, NAUSEA OR SOB. VITAL SIGNS STABLE. PT SLEPT OFF AND ON DURING THE NIGHT. NO ACUTE CHANGES IN PT CONDITION NOTED. WILL CONTINUE TO MONITOR AND TREAT PER EMAR UNTIL HAND OFF TO DAY SHIFT RN.
--- NOTE | 2019-09-10 12:20 | NUR ---
HE WAS VERY SLEEPY THIS MORNING BUT WOKE UP ENOUGH TO GET OOB TO THE CHAIR WITH PT FOR BREAKFAST. HE WAS STIFF AND WEAK. HE ATE WELL, MOSTLY FEEDING HIMSELF AFTER SET UP. HIS TELE WAS DC'D LATER. ROUNDED. HE THEN GOT A SHOWER AND BACK INTO THE CHAIR FOR LUNCH. HE IS NOW BEING PUT BACK TO BED BECAUSE HE WAS FALLING ASLEEP IN THE CHAIR. HE LEANS WAY FORWARD WHEN HE DOES THAT. BED AND CHAIR ALARMS USED. YELLOW GOWN ON. HOB UP TO AVOID ASPIRATION RISK. HE LOOKS VERY COMFORTABLE AND JUST EXHAUSTED BY THE SHOWER.
--- NOTE | 2019-09-10 18:38 | NUR ---
HE HAS SPENT MORE OF THE DAY SLEEPY TODAY THAN YESTERDAY. HE WAS SHOWERED. HE ATE 2 OUT OF 3 MEALS. HE TURNED DOWN DINNER BECAUSE HE WANTED TO CONTINUE TO SLEEP. HE HAS HAD HEAVY INCONTINENT VOIDS. NO BM. BOTTOM RED. CREAM APPLIED. HE IS ON HIS R SIDE IN BED. VSS. NO VISITORS. TELE WAS DC'D TODAY.
--- NOTE | 2019-09-11 04:23 | NUR ---
Shift Summary Patient slept well overnight between cares. Assisted ro reposition q2h and change wet briefs. He is cooperative with cares. He did set off his bed alarm one time overnight trying to get up without assistance.
--- NOTE | 2019-09-11 17:39 | NUR ---
PT AOX2 AND COOPERATIVE OF CARE. PT HAS BEEN NAPPING MOST OF THE DAY. PHYSICAL THERAPY DID GET PT UP FOR MEALS AND HE STAYED UP FOR SOMETIME AND THEN WAS A ONE PERSON BACK TO BED. PT WAS MAKING NOISES WHILE ASLEEP LIKE HE MIGHT HAVE SOME PAIN AND WAS TREATED PER EMAR. NO DISTRESS AT THIS TIME WILL CONTINUE TO MONITOR.
--- NOTE | 2019-09-12 04:07 | NUR ---
SHIFT SUMMARY RAMY SEEMS TO BE SLEEPING T/O THE NIGHT. HE HAS NOT HAD ANY S/S OR C/O PAIN OR DISCOMFORT. HE HAS BEEN CHECKED AND CHANGED T/O THE NIGHT. HE WEARS DEPENDS. HIS LS WERE CLR AND BT+ X4. HE IS PLEASANT BUT SEEMS VERY CONFUSED.
--- NOTE | 2019-09-12 17:31 | NUR ---
PT AX1 AND COOPERATIVE OF CARE. PT TOOK A COUPLE NAPS TODAY, BUT WAS UP IN CHAIR AND MORE ALERT. PT EATING WELL WHEN FED. PT IS A 1-2 PERSON TRANSFER WITH GAIT BELT TO BED. APPLIED MEPIPLEX TO COCCYX ARE FOR PREVENTION SOME MINOR REDNESS WAS NOTED. PT UP AT THIS TIME WORKING ON DINNER WILL CONTIUE TO MONITOR. PT DENIED PAIN AT THIS TIME.
--- NOTE | 2019-09-13 03:43 | NUR ---
RESPIRATORY: 02 SATURATION IS 89% ON RA. PATIENT HAS SOME UPPER AIRWAY CONGETSTION AND HAS BEEN ABLE TO CLEAR WITH COUGH IF ENCOURAGED. COUGHING UP A LARGE AMOUNT OF THICK CLEAR SECRETIONS. OXYGEN @ 2L NC IS APPLIED, SAT IS 91% ON 2L.
--- NOTE | 2019-09-13 06:31 | NUR ---
SHIFT SUMMARY: PATIENT CONTINUES TO REQUIRE 2L OF 02 VIA NC, SAT IS 92%. LOOSE COUGH IS OBSERVED AT THIS TIME PATIENT CAN NOT CLEAR SECRETIONS WITH COUGH. SUCTIONING IS ATTEMPTED BUT SECRETIONS ARE TO LOW. PATIENT DENIES PAIN OR DISCOMFORT. CALL VELA IS WITHIN REACH AND BED ALARM IS ON FOR SAFETY.
--- NOTE | 2019-09-13 17:32 | NUR ---
SUMMARY PT IS CONFUSED, ORIENTED TO SELF. VERY FLAT AFFECT, DOES NOT INITIATE CONVERSTATION, MINIMAL VERBAL RESPONSE TO QUESTIONS. HE IS SOMEWHAT LETHARGIC, SLEEPING INTERMITTANTLY T/O DAY. BREAKDOWN WORKER PREPS HIM FOR MEALS & SETS UP TRAY, PT ABLE TO FEED HIMSELF. GOOD APPETITE. HE IS WEAK, HAS NOT ATTEMPTED TO GET OOB. LUNGS ARE DECREASED W OCCASIONAL CONGESTED COUGH, HAVE ENCOURAGED DEEP BREATHING. BIOX 87-89% RA, PLACED ON 2L O2 THIS AFTERNOON, 91% BP RUNS LOW, LAST 107/57. HE IS INCONT, IN ATTENDS. NOTED NO BM X MULT DAYS, PRN MOM & SUPPOSITORY GIVEN TODAY, W/O RESULTS @ THIS TIME. DR CERVANTES STATE PLAN FOR TRANSFER TO MEMORY CARE FACILITY WHEN APPROP.
--- NOTE | 2019-09-14 04:41 | NUR ---
SHIFT SUMMARY: VSS. AFEB. A/O TO SELF AND SURROUNDINGS. QUIET AND OFFERS MINIMAL VERBAL RESPONSE. AFFECT FLAT, PT COOPERATIVE WITH CARES. T/F TO BED WITH 2 ASSIST AND GAIT BELT. 02 SAT 90-92% ON RA. LSCTA. AUDIBLE WET SOUNDING BREATH SOUNDS HOWEVER. ENCOURAGED PT TO FORCE COUGH. PRODUCED MOD AMT OF WHITE THIN SPUTUM. BREATH SOUNDS IMPROVED AFTER. HEAD OF BED KEPT ELEVATED 30 DEGREES. BED LOW, BED ALARM ON, CALL BUTTON EXPLAINED AND PLACED WITHIN REACH. PT MADE NO ATTEMPTS TO SELF T/F OUT OF BED TONIGHT.
--- NOTE | 2019-09-14 10:59 | NUR ---
PT ASSISTED UP TO CHAIR FOR BF, VERY UNSTEADY GAIT, DOES NOT BR WT. HEALTH CARE SPECIALIST PROVIDE COMPLETE BEDBATH. PHYTHER IN FOR EVAL, UNABLE TO AMBULATE PT. DR BOUCHER IN TO SEE PT.
--- NOTE | 2019-09-14 15:57 | NUR ---
SUMMARY PT IS CALM T/O DAY, NO S/S PAIN OR SOB. HX DEMENTIA, HE IS ORIENTED X1, ANSWER BASIC QUESTIONS APPROP, HE SPEAKS IN SOFT VOICE, DOES NOT INITIATE CONVERSATION. HE CONTINUES VERY WEAK, UNABLE TO BR WT, REQUIRES 2 ASSIST TO STAND/PIVOT TO CHAIR. HE HAS BEEN UP FOR MEALS, ABLE TO FEED HIMSELF PUREED, NECTAR THICK DIET W SUPERVISION. HE HAS NOT REQUIRED SUPPLEMENTAL O2 TODAY, BIOX 91-92% RA. VSS. DR BOUCHER & [facility] ATTEMPTING TO ARRANGE TRANSFER TO [facility], WORKING W PT'S .
--- NOTE | 2019-09-15 04:29 | NUR ---
SHIFT SUMMARY: VSS. AFEB. 02 SATS 90% ON RA. A/O TO SELF AND PLACE. DISORIENTED TO SITUATION AND TIME. DENIES PAIN. REMAINS VERY QUIET. DOES NOT COMMUNICATE NEEDS. WILL ANSWER DIRECT QUESTIONS. RHONCHI AUSCULTATED IN LUNGS. ENCOURAGED COUGH. COUGH IS WEAK AND PRODUCING WHITE THIN SPUTUM. RESPS REGULAR, NON-LABORED. T/F WITH 2 A, WALKER, AND GAIT BELT. REMAINED IN BED THROUGH THE NIGHT. NO ATTEMPTS TO GET OOB OR SELF T/F. BED LOW, BED ALARM ON, CALL BUTTON IN REACH.
--- NOTE | 2019-09-15 15:40 | NUR ---
SHIFT SUMMARY THE PATIENT HAS BEEN QUITE AND COOPERATIVE WITH STAFF THIS SHIFT. VITALS HAVE BEEN STABLE. MEDICATIONS TAKEN ORDERED. PATIENT REPOSITIONED AND CHANGED NEEDED. NO ACUTE CHANGES NOTED AT THIS TIME.
--- NOTE | 2019-09-15 23:13 | NUR ---
PATIENT COOPERATIVE WITH CARE AND REPOSITIONING. WILL CONTINUE TO MONITOR.
--- NOTE | 2019-09-16 04:00 | NUR ---
SHIFT SUMMARY PATIENT HAD NO ACUTE CHANGES OBSERVED. AXO X2 TO SELF/PLACE. DENIES PAIN AND N/V. RT STARTED PATIENT ON 2L O2 NC. TAKES MEDICATION WHOLE IN APPLE SAUCE X ONE AT A TIME. PIV REMAINS INTACT. TWO ASSIST W/FWW TO BSC. VSS/AFEBRILE. COOPERATIVE WITH CARE. CALL LIGHT IN REACH. BED IN LOWEST POSITION. WILL CONTINUE TO MONITOR UNTIL DAY SHIFT NURSE ASSUMES CARE.
--- NOTE | 2019-09-16 17:50 | NUR ---
SHIFT SUMMARY THE PATIENT HAS HAD AN UNEVENTFUL SHIFT. NO ACUTE CHANGES TO REPORT OF AT THIS TIME. WILL CONTINUE TO MONITOR AND PROVIDE CARE NEEDED.
--- NOTE | 2019-09-17 04:17 | NUR ---
SHIFT SUMMARY PATIENT HAD NO ACUTE CHANGES OBSERVED THIS SHIFT. AXOX 2 AND TWO PERSON ASSIST TO BSC. PIV REMAINS INTACT. DENIES PAIN, SOB, AND N/V. ON 4L O2 NC. TAKES MEDICATION WHOLE IN APPLE SAUCE X ONE EACH. VSS/AFBERILE. CALL LIGHT IN REACH. BED IN LOWEST POSITION. WILL CONTINUE TO MONITOR UNTIL DAY SHIFT NURSE ASSUMES CARE,
--- NOTE | 2019-09-17 16:26 | NUR ---
SHIFT SUMMARY THE PATIENT HAS BEEN PLEASANT AND COOPERATIVE WITH STAFF. HE WORKED WITH THERAPY TODAY. BP HAS BEEN A LITTLE HYPOTENSIVE BUT OTHERWISE VITALS WNL AND ASYMPTOMATIC. NO CHANGES NOTED THIS SHIFT. WILL CONTINUE TO MONITOR AND PROVIDE CARE NEEDED.
--- NOTE | 2019-09-18 04:40 | NUR ---
SHIFT SUMMARY PATIENT HAD NO ACUTE CHANGES OBSERVED. AXOX 2 AND BEDREST AT NIGHT. DENIES PAIN, SOB, AND N/V. ON 4L O2 NC AND RA BASELINE. VSS/AFBERILE. PIV REMAINS INTACT. COOPERATIVE WITH CARE. CALL LIGHT IN REACH. BED IN LOWEST POSITION. WILL CONTINUE TO MONITOR UNTIL DAY SHIFT NURSE ASSUMES CARE.
--- NOTE | 2019-09-18 17:11 | NUR ---
SHIFT SUMMARY NO ACUTE CHANGES THIS SHIFT, PT ALERT AND ORIENTED TO HIMSELF. PT HAS METHALEX BANDAGE A PREVENTATIVE ON COCCYX. PT RESTED QUIETLY MOST OF THE SHIFT. PT HAS BED ALARM ON AND CALL LIGHT WITHIN REACH. WILL COUNTINUE TO MONITOR THE REMAINDER OF THE SHIFT AND REPORT TO NOC RN.
--- NOTE | 2019-09-19 03:05 | NUR ---
PHERESIS SPECIALIST SUMMARY NO ACUTE CHANGES THIS SHIFT. PT AAOX2, CALM AND COOPERATIVE. CAN ANSWER MOST YES/NO QUESTIONS AND MAKE NEEDS KNOWN FOR THE MOST PART. INCONTINENT, ATTENDS IN PLACE. REMAINS ON 4L O2 VIA NC. PT PULLED IV, HOWEVER HAS NO IV MEDS. RECIEVED ORDER FROM DR FERNANDEZ TO LEAVE IV OUT. VSS, WILL CONTINUE TO MONITOR.
[2019-09-19] MEDS ORDERED: LOSA25 PO (11:42)
--- NOTE | 2019-09-19 15:22 | NUR ---
DISCHARGE SUMMARY PT STABLE AND ALERT TO SELF. PT ON 4LITERS OF NC. PT HOME MEDS ARE BEING SENT HOME WITH BELONGINGS. PT TRANSPORTED TO HOME [facility]. PT D/C INSTRUCTIONS SENT HOME WITH PT IN FOLDER.
== END 2019-09-19 15:07 | disposition home health service (06) ==
LOC: ER 13:42 → MEDS 13:43 → ER 17:21 → MEDS 17:21 → ENPENDDIS 09-19 10:46 → MEDS 09-19 15:07
PROVIDERS: Emergency Medicine; ADMIT Internal Medicine
DX: E86.0 Dehydration (principal); T79.6XXA Traumatic ischemia of muscle, initial encounter; R29.6 Repeated falls; R53.1 Weakness; E87.1 Hypo-osmolality and hyponatremia; R55 Syncope and collapse; D72.829 Elevated white blood cell count, unspecified; S49.90XA Unspecified injury of shoulder and upper arm, unspecified arm, initial encounter; I10 Essential (primary) hypertension; J44.9 Chronic obstructive pulmonary disease, unspecified; J96.11 Chronic respiratory failure with hypoxia; F01.50 Vascular dementia, unspecified severity, without behavioral disturbance, psychotic disturbance, mood disturbance, and anxiety; Z79.02 Long term (current) use of antithrombotics/antiplatelets; Z79.899 Other long term (current) drug therapy; Z87.891 Personal history of nicotine dependence; Z66 Do not resuscitate; Z88.0 Allergy status to penicillin; Z86.73 Personal history of transient ischemic attack (TIA), and cerebral infarction without residual deficits; W19.XXXA Unspecified fall, initial encounter; Z99.81 Dependence on supplemental oxygen; Y92.019 Unspecified place in single-family (private) house as the place of occurrence of the external cause
CPT/HCPCS: 36415; 51702; 70450; 71046; 73030; 80048; 80053; 81001; 82550; 82553; 82803; 83605; 84484; 85025; 92526; 92610; 93005; 93010; 94640; 94760; 96360; 97110; 97112; 97162; 97166; 97530; 97535; 99285-25; A9270; G0378; J1650; J7030; J7120